=== PATIENT | female | born 1955 | race Two or more races ===

== ENCOUNTER 2020-05-27 16:09 | Emergency (ER) | payer MEDICAID ==
[~2020-05-27] VITALS: Ht 157.5 cm; Wt 75.0 kg
[2020-05-27] MEDS ORDERED: SODIUM CHLORIDE 0.9% 1,000 ML IV ONE (20:39)
[2020-05-27 21:26] LABS: BASOPHILS % 0.9 % (0.0-2.0); EOSINOPHILS % 2.5 % (0.0-5.0); HEMOGLOBIN. 12.5 g/dL (12.0-16.0); LYMPHOCYTES % 41.4 % (20.0-50.0); MEAN CORPUSCULAR HEMOGLOBIN 26.7 pg (28.0-32.0); MEAN CORPUSCULAR VOLUME 79.3 fL (81.0-99.0); MEAN PLATELET VOLUME 9.4 fl (7.4-10.4); NEUTROPHILS % 48.2 % (40.0-76.0); PLATELET 253 x1000/uL (130-400); RED BLOOD CELL COUNT 4.66 mill/uL (4.2-5.4)
[2020-05-27 21:26] LABS: CLARITY URINE CLEAR (CLEAR); COLOR URINE YELLOW (YELLOW); KETONES URINE NEGATIVE (NEGATIVE); LEUKOCYTE ESTERASE URINE NEGATIVE (NEGATIVE); NITRITE URINE NEGATIVE (NEGATIVE); OCCULT BLOOD URINE TRACE (NEGATIVE); PROTEIN URINE 1+ (NEGATIVE); SPECIFIC GRAVITY URINE 1.035 (1.005-1.030); UROBILINOGEN URINE 0.2 E.U./dL (0.2-1.0)
[2020-05-27 21:31] LABS: CHLORIDE 92 mEq/L (98-107)
[2020-05-27] MEDS ORDERED: ENALAPRIL 5MG TABLET PO SCH (22:00)
[2020-05-27] MEDS ORDERED: INSULIN REGULAR (HUMULIN R) 300UNITS/3ML SUBCUT ONE (22:00)
[2020-05-27] MEDS ORDERED: METFORMIN HCL 500MG TABLET PO SCH (22:00)
[2020-05-28 01:00] VITALS: BP 137/82
== END 2020-05-28 02:06 | disposition home or self-care (01) ==
LOC: ER 16:09
DX: E11.65 Type 2 diabetes mellitus with hyperglycemia (principal); H10.029 Other mucopurulent conjunctivitis, unspecified eye; I10 Essential (primary) hypertension; Z98.42 Cataract extraction status, left eye; Z98.41 Cataract extraction status, right eye
CPT/HCPCS: 36415; 80053; 81003; 82962; 85025; 96372; 99283; J1815; J7030